=== PATIENT | female | born 1985 | race Caucasian/White ===

== ENCOUNTER 2022-11-16 08:09 | Emergency (ER) | payer MEDICAID ==
[~2022-11-16] VITALS: Ht 152.4 cm; Wt 59.0 kg
[2022-11-16 08:20] VITALS: BP 109/78
[2022-11-16] MEDS ORDERED: VISCOUS LIDOCAINE 2% 15 ML UDC PO STA (08:20)
[2022-11-16] MEDS ORDERED: MAGNESIUM/ALUMINUM HYDROXIDE/SIMETHICONE 30ML UDC PO STA (08:20)
[2022-11-16] MEDS ORDERED: FAMOTIDINE 20MG TABLET PO ONE (08:30)
[2022-11-16 08:50] LABS: BASOPHILS % 0.7 % (0.0-2.0); EOSINOPHILS % 0.6 % (0.0-5.0); HEMATOCRIT. 42.1 % (36.0-48.0); HEMOGLOBIN. 14.2 g/dL (12.0-16.0); LYMPHOCYTES % 29.9 % (20.0-50.0); MEAN CORPUSCULAR HEMOGLOBIN 29.4 pg (28.0-32.0); MEAN CORPUSCULAR VOLUME 87.4 fL (81.0-99.0); MEAN PLATELET VOLUME 7.7 fl (7.4-10.4); NEUTROPHILS % 62.8 % (40.0-76.0); PLATELET 345 x1000/uL (130-400); RED BLOOD CELL COUNT 4.81 mill/uL (4.2-5.4); RED CELL DISTRIBUTION WIDTH 13.8 % (11.6-14.6)
[2022-11-16 08:55] LABS: CHLORIDE 107 mEq/L (98-107)
[2022-11-16 09:07] LABS: HCG SCREEN NEGATIVE
[2022-11-16] MEDS ORDERED: PIPERACILLIN/TAZ 3.375G PREMIX 50 ML IV ONE (10:00)
[2022-11-16 10:56] LABS: CLARITY URINE CLOUDY (CLEAR); COLOR URINE YELLOW (YELLOW); KETONES URINE TRACE (NEGATIVE); LEUKOCYTE ESTERASE URINE 2+ (NEGATIVE); NITRITE URINE POSITIVE (NEGATIVE); OCCULT BLOOD URINE NEGATIVE (NEGATIVE); PH URINE 6.5 (4.5-8.0); PROTEIN URINE NEGATIVE (NEGATIVE); SPECIFIC GRAVITY URINE 1.019 (1.005-1.030); UROBILINOGEN URINE 0.2 E.U./dL (0.2-1.0)
[2022-11-16] MEDS ORDERED: FAMOTIDINE 20MG TABLET PO NR (11:00)
[2022-11-16] MEDS ORDERED: MAGNESIUM/ALUMINUM HYDROXIDE/SIMETHICONE 30ML UDC PO NR (11:00)
[2022-11-16] MEDS ORDERED: VISCOUS LIDOCAINE 2% 15 ML UDC PO NR (11:00)
== END 2022-11-16 17:32 | disposition left against medical advice (07) ==
LOC: ER 08:09 → EDBEDREQ 12:15 → EDBEDREQTM 12:15 → SUPCPDRO 13:03 → CANRESERV 14:46 → ENRESERV 14:46 → ER 17:32 → CANBEDREQ 11-17 10:38
DX: R10.9 Unspecified abdominal pain (principal); N39.0 Urinary tract infection, site not specified; K81.9 Cholecystitis, unspecified; F17.200 Nicotine dependence, unspecified, uncomplicated
CPT/HCPCS: 36415; 76705; 80053; 81003; 81025; 83690; 84703; 85025; 87040; 87077; 87086; 87186; 96365; 99285; J2543